=== PATIENT | female | born 1970 | race Caucasian/White ===

== ENCOUNTER → 2019-11-30 15:03 | Outpatient (BNVA) | payer OTHER, SELFPAY | PROVIDERS: Family Provider Family Medicine; Referring Provider Dermatology; Visit Provider Dermatology | DX: L82.1 Other seborrheic keratosis (principal); D48.9 Neoplasm of uncertain behavior, unspecified; D22.9 Melanocytic nevi, unspecified | CPT/HCPCS: 11102; 88304; 88305; 99203; 99204 ==

== ENCOUNTER → 2021-01-26 10:08 | Outpatient (BNVA) | payer OTHER, SELFPAY | PROVIDERS: Family Provider Family Medicine; Visit Provider Obstetrics & Gynecology | DX: Z01.419 Encounter for gynecological examination (general) (routine) without abnormal findings (principal) | CPT/HCPCS: 87624 ==